=== PATIENT | male | born 1980 ===

== ENCOUNTER 2017-10-30 13:46 | Emergency (ER) | payer OTHER ==
[2017-10-30 13:53] VITALS: RESP 18; O2SAT 99
[2017-10-30 13:57] VITALS: BP 130/82; PULSE 69; TEMP 98.2
[2017-10-30] MEDS ORDERED: Oxycodone/Acetaminophen 5/325 mg Tab PO ONE (14:49)
[2017-10-30] MEDS ORDERED: Tdap Vaccine 0.5 ml Vial (10-64 yrs) IM ONE ×2 (14:49→16:05)
--- NOTE | 2017-10-30 15:05 | ED PDOC ---
Upper Extremity Pain/Injury Time Seen by Provider: 10/30/17 14:09 Chief Complaint (Nursing): Upper Extremity Problem/Injury Chief Complaint (Provider): Left hand injury History Per: Patient History/Exam Limitations: no limitations Onset/Duration Of Symptoms: Mins Current Symptoms Are (Timing): Still Present Quality: "Pain" Additional History Per: Patient Additional Complaint(s): 37yo male, right hand dominant, presents to ED with complaints of a laceration to his left hand sustained earlier today while he was using a screwdriver. Patient reports he is unsure when he had his last tetanus vaccination. He denies any weakness, numbness, tingling to his hand. He denies any other trauma or injuries. Patient has no other medical complaints and reports localized pain. Patient is right hand dominant. PMD: none Past Medical History Reviewed: Historical Data, Nursing Documentation, Vital Signs Vital Signs: Last Vital Signs Temp 98.2 F 10/30/17 13:54 Pulse 69 10/30/17 13:54 Resp 18 10/30/17 13:54 BP 130/82 10/30/17 13:54 Pulse Ox 99 10/30/17 13:54 - Medical History PMH: No Chronic Diseases - Surgical History Surgical History: No Surg Hx - Family History Family History: States: No Known Family Hx - Living Arrangements Living Arrangements: With Family - Social History Current smoker - smoking cessation education provided: No Alcohol: None Drugs: Denies - Immunization History Hx Tetanus Toxoid Vaccination: No (unknown) - Home Medications Home Medications: Ambulatory Orders Medication Instructions Recorded Bacitracin Ointment [Bacitracin] 1 gm TOP BID #1 tube 10/30/17 - Allergies Allergies/Adverse Reactions: Allergies Allergy/AdvReac Type Severity Reaction Status Date / Time No Known Allergies Allergy Verified 10/30/17 13:51 Review of Systems ROS Statement: Except As Marked, All Systems Reviewed And Found Negative Musculoskeletal: Positive for: Hand Pain (laceration to left hand) Neurological: Negative for: Weakness, Numbness Physical Exam - Reviewed Nursing Documentation Reviewed: Yes Vital Signs Reviewed: Yes - Physical Exam Comments: GENERAL: Patient is awake, alert, and in mild painful distress. SKIN: Warm, dry; (-) cyanosis. ENT: Mucus membranes moist. RESPIRATORY: lungs clear to auscultation bilaterally (-) rales (-) rhonchi (-) wheezing CARDIAC: (-) murmur LEFT HAND: (+) 2cm diagonal, gaping laceration to 1st web space on left hand. ( +) decreased ROM to left thumb secondary to pain. (-) neurovascular deficit (+) sensation intact (-) active bleeding (-) foreign body (-) ecchymosis (-) nail involvement. Cap refill <2 seconds. - ECG O2 Sat by Pulse Oximetry: 99 (RA) Pulse Ox Interpretation: Normal Medical Decision Making Medical Decision Making: Impression: laceration to left hand Plan: -- XR Left hand -- Adacel 0.5ml IM Time: 1535 XR Left Hand : No fracture or foreign body noted, as read by PA. Patient advised that official radiology read of XR is still pending and will call the patient if there is any discrepancy within 24 hours. Time: 1540 Laceration repair performed. See procedure note below. NV intact. After exploration of laceration, tendon function intact and there is no deep structure involvement. After anesthesia applied, patient with FROM of his thumb. No neuro-vascular deficits noted. Time: 1629 Patient informed on care of sutures and instructed that since the sutures are absorbable, he does not need to return to the ER for removal. Given return precautions for signs of infection. On re-eval, patient with no acute distress. Heart and lung sounds normal. Patient is stable for discharge home. Advised to take medication as prescribed. Return to the emergency room at any time for any new or worsening symptoms. Patient states he fully agrees with and understands discharge instructions. States that he agrees with the plan and disposition. Verbalized and repeated discharge instructions and plan. I have given the patient opportunity to ask any additional questions. Scribe Attestation: Documented by Fernanda Blandon acting as a scribe for YINKA He Provider Attestation: All medical record entries made by the Scribe were at my direction and personally dictated by me. I have reviewed the chart and agree that the record accurately reflects my personal performance of the history, physical exam, medical decision making, and the department course for this patient. I have also personally directed, reviewed, and agree with the discharge instructions and disposition. Procedures - Time-Out Type of Procedure: Laceration repair Site of Procedure: 1st webspace left hand Correct Patient: Yes Correct Procedure: Yes PA/Tech: Elizabeth Odonnell - Laceration/Wound Repair 1st web space left hand Wound Length (cm): 2 Wound's Depth, Shape: linear Wound Explored: clean Irrigated w/ Saline (ccs): 200 Betadine Prep?: Yes Anesthesia: 1% Lidocaine Volume Anesthetic (ccs): 8 Wound Repaired With: Sutures (simple interrupted) Suture Size/Type: 5:0, nylon (monocryl) Number of Sutures: 7 Layer Closure?: No Wound Complexity: Simple Sterile Dressing Applied?: Yes (bacitracin applied to wound) Splint Applied?: No Progress: Patient tolerated procedure well. Disposition - Clinical Impression Clinical Impression: Hand laceration - Patient ED Disposition Is Patient to be Admitted: No Counseled Patient/Family Regarding: Studies Performed, Diagnosis, Need For Followup, Rx Given - Disposition Referrals: [facility] [Provider Group] Disposition: Routine/Home Disposition Time: 16:51 Condition: STABLE Additional Instructions: KEEP WOUND CLEAN AND DRY. CLEAN 2X DAILY WITH WARM WATER AND ANTIBACTERIAL SOAP. Prescriptions: Bacitracin Ointment [Bacitracin] 1 gm TOP BID #1 tube Instructions: Wound Care, Laceration Repair With Stitches (DC) Forms: [employer] (French) Print Language: PASHTO - POA Present On Arrival: None
[2017-10-30] MEDS ORDERED: Oxycodone/Acetaminophen 5/325 mg Tab ONE (16:05)
--- NOTE | 2017-10-30 17:22 | RAD ---
PROCEDURE: Left Hand Radiographs. HISTORY: soft tissue injury, r/o fracture COMPARISON: None. FINDINGS: BONES: No evidence of fracture. JOINTS: Normal. No osteoarthritic changes. SOFT TISSUES: No visulaized radiopaque/visualized foreign body. OTHER FINDINGS: None. IMPRESSION: Soft tissue swelling without acute articular or osseous abnormality.
== END 2017-10-30 17:05 | disposition home or self-care (01) ==
LOC: H.ER 13:46
DX: S61.412A Laceration without foreign body of left hand, initial encounter (principal); W27.0XXA Contact with workbench tool, initial encounter